=== PATIENT | female | born 1995 | race African-American/Black ===

== ENCOUNTER 2024-06-28 08:10 | Emergency (ER) | payer BC ==
[2024-06-28 08:50] LABS: APPEARANCE,URINE CLEAR; BILIRUBIN,URINE NEGATIVE (NEGATIVE); COLOR,URINE YELLOW; GLUCOSE,URINE NEGATIVE (NEGATIVE); KETONES,URINE NEGATIVE (NEGATIVE); LEUKOCYTE ESTERASE,URINE NEGATIVE (NEGATIVE); NITRITE,URINE NEGATIVE (NEGATIVE); OCCULT BLOOD,URINE NEGATIVE (NEGATIVE); PROTEIN,URINE NEGATIVE (NEGATIVE); UROBILINOGEN,URINE 0.2 E.U./dL (0.2-1.0)
[2024-06-28] MEDS: Sodium Chloride 0.9% 10 ML Syringe FLUSH PRN (08:53)
[2024-06-28] MEDS: Labetalol 20 MG/4 ML Syringe IVPUSH ONE ×3 (08:53→11:13)
[2024-06-28 09:02] LABS: PROTHROMBIN TIME 9.8 SEC (9.0-11.1)
[2024-06-28 09:03] LABS: BASOPHILS ABSOLUTE AUTO 0.02 K/uL (0.00-0.20); BASOPHILS PERCENT AUTO 0.3 % (0.0-2.0); EOSINOPHILS ABSOLUTE AUTO 0.25 K/uL (0.00-0.50); EOSINOPHILS PERCENT AUTO 3.6 % (0.0-5.0); HEMATOCRIT 31.4 % (34.0-46.0); HEMOGLOBIN 9.1 g/dL (11.7-15.5); LYMPHOCYTES ABSOLUTE AUTO 1.85 K/uL (0.50-3.50); LYMPHOCYTES PERCENT AUTO 26.5 % (10.0-50.0); MEAN CORPUSCULAR HEMOGLOBIN 22.8 pg (28.2-33.3); MEAN CORPUSCULAR VOLUME 78.5 fL (84.0-98.0); MONOCYTES ABSOLUTE AUTO 0.58 K/uL (0.00-1.00); MONOCYTES PERCENT AUTO 8.3 % (2.0-14.0); NEUTROPHILS ABSOLUTE AUTO 4.29 K/uL (1.40-7.00); NEUTROPHILS PERCENT AUTO 61.3 % (45.0-80.0); PLATELET COUNT,PLT 201 K/uL (150-350)
[2024-06-28 09:07] LABS: ALANINE AMINOTRANSFERASE,ALT 19 U/L (12-78); ALBUMIN 3.4 g/dL (3.4-5.0); ALKALINE PHOSPHATASE 118 IU/L (46-116); ANION GAP 7.2 meq/L (7-15); ASPARTATE AMNIOTRANSFERASE,AST 24 U/L (15-37); BILIRUBIN TOTAL 0.2 mg/dL (0.2-1.0); BLOOD UREA NITROGEN,BUN 10 mg/dL (7-18); CALCIUM 8.9 mg/dL (8.5-10.1); CARBON DIOXIDE,CO2 29.8 mmol/L (21.0-32.0); CHLORIDE,CL 105 mmol/L (98-107); CREATININE 0.96 mg/dL (0.51-1.17); GLUCOSE RANDOM 94 mg/dL (70-99); POTASSIUM,K 3.6 mmol/L (3.5-5.1); PRO B-TYPE NATRIUR PEPT,BNPPRO 258 pg/mL (0-125); PROTEIN TOTAL,TP 8.6 g/dL (6.4-8.2); SODIUM,NA 142 mmol/L (136-145)
[2024-06-28 09:10] LABS: ESTIMATED GFR 82 mL/min (>=60)
[2024-06-28 09:20] LABS: PTT,PARTIAL THROMBOPLSTIN TIME 20.4 SEC (23.6-29.8)
[2024-06-28] MEDS: cloNIDine 0.1 MG Tab PO ONE (09:56)
== END 2024-06-28 11:45 | disposition left against medical advice (07) ==
LOC: LL.ED 08:10
DX: I16.0 Hypertensive urgency (principal); D50.9 Iron deficiency anemia, unspecified
CPT/HCPCS: 36415; 71045; 80053; 81003; 81025; 83605; 83735; 83880; 84484; 85025; 85379; 85610; 85730; 93005; 93010; 96374; 96376; 99284; 99285-25; A9270-GY; J1920; J3490